=== PATIENT | female | born 1955 | race American Indian/Alaskan Native ===

== ENCOUNTER 2017-12-20 13:17 | Outpatient (CLI) | payer OTHER ==
--- NOTE | 2017-12-20 22:58 | Cat Scan Report ---
FINAL REPORT PROCEDURE: CT CHEST WO CON TECHNIQUE: Computerized axial tomography of the chest was performed without contrast material. This study is performed without intravenous contrast and the sensitivity for pathology, including neoplasms, adenopathy, abscess, pulmonary embolism and aortic dissection, is reduced. HISTORY: COPD COMPARISON: No prior studies are available for comparison. TECHNICAL QUALITY: Satisfactory. FINDINGS: Heart and pericardium: Normal. Thoracic aorta: Normal. Pulmonary vasculature: Normal. Lymph nodes: No enlarged thoracic lymph nodes. Lungs: There is advanced COPD. There is a spiculated solid noncalcified mass at the left lung base on image 94 measuring 2.3 centimeters. The there is a complex spiculated partially cavitating mass in the right lung apex measuring 3.2 centimeters on image 33. There is a solid spiculated mass in the left lung apex on image 32 measuring 14 millimeters. Malignancy is suspected.. Pleural space: There is no pleural effusion or pneumothorax.. Musculoskeletal structures: No significant abnormality. Upper abdominal structures: No significant abnormality. IMPRESSION: Heart size is normal.. There is advanced COPD. There are no acute infiltrates. There are bilateral pulmonary masses as described. Malignancy is suspected.. There is no pleural effusion or pneumothorax..
== END 2017-12-20 13:18 | disposition home or self-care (01) ==
LOC: CT 13:17
PROVIDERS: ATTEND Specialist
DX: R91.1 Solitary pulmonary nodule (principal); J44.9 Chronic obstructive pulmonary disease, unspecified; I10 Essential (primary) hypertension; F17.210 Nicotine dependence, cigarettes, uncomplicated
CPT/HCPCS: 71250

== ENCOUNTER 2018-01-19 10:33 | Outpatient (CLI) | payer OTHER ==
--- NOTE | 2018-01-20 10:16 | PET Report ---
PET/CT:01/19/18 10:33:00 CLINICAL: Lung nodule RADIOPHARMACEUTICAL: 13.49mCi F18-FDG. COMPARISON: CT chest 12/20/17 TECHNIQUE- Following intravenous injection of F-18 FDG and an approximately 60 minute uptake period, CT and PET images from the mid skull to the upper thighs were acquired with the patient in the fasted state. No contrast was administered. The CT protocol used for this PET CT study is designed for attenuation correction and anatomic localization of PET abnormalities. This television service engineer CT is not desired to produce and cannot replace, [id number] diagnostic CT scans with specific imaging protocols for different body parts and indications. Plasma glucose at the time of this test: 97g/dl. The standardized uptake values (SUV) are normalized to patient body weight and indicate the highest activity concentration (SUV max) in a given disease site. FINDINGS: Brain--Physiologic FDG uptake in the visualized regions of the brain. Neck--Physiologic FDG uptake in mucosal structures. No mass or lymphadenopathy of the neck. Chest--Physiologic FDG uptake in mediastinal blood pool and myocardium. Lungs--Bilateral multi-lobar FDG avid lung masses. A cavitary FDG avid right upper lobe mass measures 3.1 x 2.8 cm with SUV 12.2. The mass extends to a thickened pleura and there are additional reticular interstitial opacities of the right upper lobe. An FDG avid left upper lobe mass adjacent to the FDG avid thickened pleura measures 1.8 x 1.6 cm with SUV 7.9. Spiculated FDG avid left lower lobe mass measures 3.0 x 2.0 cm with SUV 7.8. Pleura/pericardium--FDG avid thickened pleura in the upper lobes. No pleural effusion. A 9 mm FDG avid pleural-based parasternal nodule at the left third interspace. Thoracic nodes--Multiple FDG avid mediastinal lymph nodes. A pretracheal retrocaval lymph node with SUV 12.1. A more inferior and larger pretracheal lymph node measures 2.3 x 1.8 cm with SUV 12.1. Hepatobiliary--No abnormal uptake. Liver background SUV mean, as a reference for comparing FDG studies, is 2.7. No liver mass. Spleen--No abnormal uptake. Pancreas--No abnormal uptake. Adrenal Glands--No abnormal uptake. Kidneys/Ureters/Bladder--No abnormal uptake. Abdominopelvic Nodes--No abnormal uptake. Bowel/Peritoneum/Mesentery--No abnormal uptake. Pelvic organs--No abnormal uptake. Bones/Soft Tissues--No abnormal uptake. No suspicious bone lesions. IMPRESSION- 1. Bilateral upper lobe and left lower lobe FDG avid lung masses which are suspicious for multilobar bronchogenic carcinoma. However, an infectious etiology such as TB cannot be entirely excluded. 2. FDG avid mediastinal lymph nodes are suspicious for harlan metastasis. 3. No evidence of adrenal, hepatic or skeletal metastasis.
== END 2018-01-19 10:34 | disposition home or self-care (01) ==
LOC: PET 10:33
PROVIDERS: ATTEND Specialist
DX: R91.8 Other nonspecific abnormal finding of lung field (principal); I10 Essential (primary) hypertension; F17.210 Nicotine dependence, cigarettes, uncomplicated
CPT/HCPCS: 78815; 82962; A9552